=== PATIENT | female | born 1995 | race Two or more races ===

== ENCOUNTER 2023-09-01 13:11 | Emergency (ER) | payer OTHER ==
[~2023-09-01] VITALS: Ht 162.6 cm; Wt 130.6 kg
[2023-09-01] MEDS ORDERED: SYNTHROID150 MCG PO (13:53)
[2023-09-01] MEDS ORDERED: KETOROLAC TROMETHAMINE 60 MG VIAL IM ONE (14:30)
[2023-09-01 14:47] LABS: HEMATOCRIT 40.1 % (36.0-45.00); HEMOGLOBIN 13.5 g/dL (12.0-15.00); MEAN CELL VOLUME 83.8 fL (80.00-100.00); MEAN CORPUSCULAR HEMOGLOBIN 28.3 pg (27.00-32.0); MEAN CORPUSCULAR HGB CONC 33.8 g/dl (32.0-36.0); PLATELET COUNT 237 K/uL (150-450); RED BLOOD COUNT 4.79 M/uL (4.00-6.00); RED CELL DISTRIBUTION WIDTH 13.5 % (11.5-14.5)
[2023-09-01 15:11] LABS: ALBUMIN 3.4 gm/dL (3.4-5.0); BILIRUBIN TOTAL 0.31 mg/dL (0.3-1.2); CALCIUM 8.6 mg/dL (8.5-10.1); CREATININE SERUM 0.77 mg/dL (0.55-1.02); GFR 88.63; GLOBULINA 3.8 G/DL (2.4-3.5); POTASSIUM 3.83 mEq/L (3.5-5.1); TOTAL PROTEIN 7.2 gm/dL (6.4-8.2)
[2023-09-01] MEDS ORDERED: DICLOFENAC SODI75 MG PO (15:41)
== END 2023-09-01 15:48 | disposition home or self-care (01) ==
LOC: ER 13:12
PROVIDERS: General Practice
DX: R20.8 Other disturbances of skin sensation (principal); R10.9 Unspecified abdominal pain